=== PATIENT | male | born 1980 | race Caucasian/White ===

== ENCOUNTER 2018-12-04 04:17 | Emergency (ER) | payer OTHER ==
[2018-12-04] MEDS: PENICILLIN G BENZ 2.4 MIL UNIT SYG IM (05:07)
[2018-12-04 06:27] LABS: HIV 1&2 ANTIBODY NEGATIVE (NEGATIVE)
[2018-12-04 15:20] LABS: RAPID PLASMA REAGIN REACTIVE (NR)
== END 2018-12-04 05:41 | disposition home or self-care (01) ==
LOC: FTE 04:17
DX: Z20.2 Contact with and (suspected) exposure to infections with a predominantly sexual mode of transmission (principal)
CPT/HCPCS: 86592; 86703; 87285; 87591; 96372; 99284-25

== ENCOUNTER 2018-12-27 07:53 | Emergency (ER) | payer OTHER ==
[2018-12-27] MEDS: DEXAMETHASONE 10 MG/ML 1 ML INJ IM (08:27)
[2018-12-27] MEDS: IPRATROPIUM (NEB) 0.5 MG/2.5 ML AMP HHN (08:42)
[2018-12-27] MEDS: ALBUTEROL 0.083% (NEB) 2.5 MG/3 ML AMP HHN (08:42)
== END 2018-12-27 09:26 | disposition home or self-care (01) ==
LOC: FTE 07:53
DX: R05 Cough (principal); F17.210 Nicotine dependence, cigarettes, uncomplicated
CPT/HCPCS: 71045; 94640; 94664; 96372; 99284-25